=== PATIENT | female | born 1990 | race Caucasian/White ===

== ENCOUNTER 2018-06-28 22:23 | Emergency (ER) | payer BC, OTHER ==
--- NOTE | 2018-06-28 23:59 | ED ---
General Adult HPI - General Chief complaint: Extremity Injury, Upper Stated complaint: Arm pain Time Seen by Provider: 06/28/18 22:37 Source: patient, RN notes reviewed, old records reviewed Mode of arrival: ambulatory Limitations: no limitations - History of Present Illness Initial comments: 27-year-old male patient with no pertinent past history presents to the approximate 1 month of right arm pain. Patient reports that she has pain with twisting and gripping movements of her right hand. Patient reports that she has a pain that shoots from her thumb upper ulnar to her elbow. Patient was that she has taken Tylenol and Motrin for this pain, for which she has had mild relief. Patient reports that she has pain with gripping of right hand, however does not have any weakness. Patient denies any injury or trauma. Patient denies any other complaints. Patient denies any chest pain, shortness of breath, headache, changes in vision, focal deficit, weakness in upper or lower extremity. Systemic: Pt denies fatigue, fever/chills, rash. Pt denies weakness, night sweats, weight loss. Neuro: Pt denies headache, visual disturbances, syncope or pre-syncope. HEENT: Pt denies ocular discharge or irritation, otalgia, rhinorrhea, pharyngitis or notable lymphadenopathy. Cardiopulmonary: Pt denies chest pain, SOB, heart palpitations, dyspnea on exer tion. Abdominal/GI: Pt denies abdominal pain, n/v/d. : Pt denies dysuria, burning w/ urination, frequency/urgency. Denies new onset urinary or bowel incontinence. MSK: Pt denies loss of strength or function in extremities. Neuro: Pt denies new onset weakness, paresthesias. - Related Data Home Medications Medication Instructions Recorded Confirmed traZODone HCL 50 mg PO HS 06/28/18 06/28/18 Allergies Allergy/AdvReac Type Severity Reaction Status Date / Time No Known Allergies Allergy Verified 06/28/18 22:33 Review of Systems ROS Statement: Those systems with pertinent positive or pertinent negative responses have been documented in the HPI. ROS Other: All systems not noted in ROS Statement are negative. Past Medical History Past Medical History: No Reported History History of Any Multi-Drug Resistant Organisms: None Reported Past Surgical History: Appendectomy, Orthopedic Surgery Past Psychological History: Panic Disorder Smoking Status: Light tobacco smoker Past Alcohol Use History: Occasional Past Drug Use History: None Reported General Exam - General Exam Comments Initial Comments: Constitutional: NAD, AOX3, Pt has pleasant affect. HEENT: NC/AT, trachea midline, neck supple, no lymphadenopathy. Posterior pharynx non erythematous, without exudates. External ears appear normal, without discharge. Mucous membranes moist. Eyes PERRLA, EOM intact. There is no scleral icterus. No pallor noted. Cardiopulmonary: RRR, no murmurs, rubs or gallops, no JVD noted. Lungs CTAB in anterior and posterior cerna. No peripheral edema. Abdominal exam: Abdomen soft and non-distended. Abdomen non-tender to palpation in all 4 quadrants. Bowel sounds active in LLQ. No hepatosplenomegaly. No ecchymosis Neuro: CN II-XII grossly intact. No nuchal rigidity. MSK: Pain reproducible with gripping of right hand. No significant tenderness to right upper extremity. Radial pulse +2, capillary refill less than 2 seconds. Normal manager recruitment strength bilaterally, sensation intact bilaterally. No posterior calf tenderness bilaterally, homans sign negative bilaterally. Posterior tibialis and radial pulse +2 bilaterally. Sensation intact in upper and lower extremities. Full active ROM in upper and lower extremities, 5/5 stregnth. Limitations: no limitations Course Vital Signs 06/28/18 22:29 Temperature 98.2 F Pulse Rate 100 Respiratory 17 Rate Blood Pressure 124/87 O2 Sat by Pulse 99 Oximetry Medical Decision Making - Medical Decision Making 27-year-old male patient with no pertinent past history presents to the approximate 1 month of right arm pain. Patient reports that she has pain with twisting and gripping movements of her right hand. Patient reports that she has a pain that shoots from her thumb upper ulnar to her elbow. Patient was that she has taken Tylenol and Motrin for this pain, for which she has had mild relief. Patient reports that she has pain with gripping of right hand, however does not have any weakness. Patient denies any injury or trauma. Patient denies any other complaints. Patient denies any chest pain, shortness of breath, headache, changes in vision, focal deficit, weakness in upper or lower extremity. Pt VSS, afebrile. Physical exam displayed: Normal manager recruitment strength bilaterally, sensation intact bilaterally. No posterior calf tenderness bilaterally, homans sign negative bilaterally. Posterior tibialis and radial pulse +2 bilaterally. Sensation intact in upper and lower extremities. Full active ROM in upper and lower extremities, 5/5 stregnth. Plain films of and forearm and elbow did not demonstrate acute pathology. Explained patient of this is likely a possible carpal tunnel or cubital tunnel syndrome. Patient verbalized understanding. Patient given orthopedic referral. Patient follow up with orthopedic surgeon 1-2 days. Pt will use tylenol or motrin as needed for pain, pt states she is not . Patient has used neutral splint. Patient was understanding. Patient return to ER if condition worsens in any way. Case discussed with Dr. Le. Disposition Clinical Impression: Arthralgia Disposition: HOME SELF-CARE Condition: Stable Instructions (If sedation given, give patient instructions): Carpal Tunnel Surgery (DC), Cubital Tunnel Syndrome (ED), Arthralgia (ED) Additional Instructions: Patient to adhere to previously discussed treatment plan and will take medication(s) as directed. Patient to follow up with PCP in 1-2 days. Patient to return to ED if symptoms do not improve. Please use Tylenol or Motrin as needed for pain. Please follow-up with orthopedic consult 1-2 days. Please wear neutral splints on wrist. Is patient prescribed a controlled substance at d/c from ED?: No Referrals: None,Stated [Primary Care Provider] - 1-2 days Elizabeth Molina, PAC [[facility]] - 1-2 days
--- NOTE | 2018-06-29 00:12 | XR ---
EXAM: XR Right Elbow Complete, 3 or More Views CLINICAL HISTORY: ITS.REASON XR Reason: Pain TECHNIQUE: Frontal, lateral and oblique views of the right elbow. COMPARISON: No relevant prior studies available. FINDINGS: Bones/joints: No acute fracture. No dislocation. Soft tissues: Unremarkable. IMPRESSION: No acute findings.
--- NOTE | 2018-06-29 00:12 | XR ---
EXAM: XR Right Forearm, 2 Views CLINICAL HISTORY: ITS.REASON XR Reason: Pain TECHNIQUE: Frontal and lateral views of the right forearm. COMPARISON: No relevant prior studies available. FINDINGS: Bones/joints: No acute fracture. No dislocation. Soft tissues: Unremarkable. IMPRESSION: No acute findings.
--- NOTE | 2018-06-29 00:15 | XR ---
EXAM: XR Right Hand Complete, 3 or More Views CLINICAL HISTORY: ITS.REASON XR Reason: Pain TECHNIQUE: Frontal, lateral and oblique views of the right hand. COMPARISON: No relevant prior studies available. FINDINGS: Bones/joints: No acute fracture. No dislocation. Soft tissues: Unremarkable. No radiopaque foreign body. IMPRESSION: No acute findings.
[2018-06-29 00:44] VITALS: BP 115/79; PULSE 72; RESP 16; TEMP 98
== END 2018-06-29 00:44 | disposition home or self-care (01) ==
LOC: EC 22:23
DX: M25.541 Pain in joints of right hand (principal); F41.0 Panic disorder [episodic paroxysmal anxiety]; F17.200 Nicotine dependence, unspecified, uncomplicated; Z79.899 Other long term (current) drug therapy
CPT/HCPCS: 99284

== ENCOUNTER → 2020-05-05 | Outpatient (CLI) | payer OTHER ==
--- NOTE | 2020-05-06 02:33 | MR ---
EXAMINATION TYPE: MR angio pelvis wo/w con DATE OF EXAM: 05/05/2020 COMPARISON: None HISTORY: Pelvic congstion syndrome, venous insufficiency CONTRAST: Standard multiplanar, multisequence MRI departmental protocol utilizing 5 mL intravenous Gadavist jeremie olinium contrast. There is normal appearance of the lower abdominal aorta and the common iliac arteries. There is arter ial flow in the internal and external iliac arteries and in both femoral arteries. I see no evidence of hemodynamic stenosis. There is arterial flow in both profunda femoris arteries. There is no mass e ffect. There is no sign of arterial aneurysm or dissection. Bladder distends smoothly. Uterus is anteverted. There is no evidence of free fluid in the pelvis. Th ere is no sign of a pelvic mass. Bony structures appear intact. IMPRESSION: No angiographic arterial abnormality in the pelvis. This exam does not evaluate the venous structures and the possibility of varices.
== END | disposition home or self-care (01) ==
LOC: RADMRIMAIN 16:38
PROVIDERS: ATTEND Surgery Vascular Surgery
DX: I87.2 Venous insufficiency (chronic) (peripheral) (principal); N94.89 Other specified conditions associated with female genital organs and menstrual cycle
CPT/HCPCS: C8920; A9585; 72198

== ENCOUNTER 2021-06-01 18:53 | Emergency (ER) | payer OTHER ==
[2021-06-01 19:02] VITALS: TEMP 98.3
[2021-06-01] MEDS ORDERED: SODIUM CHLORIDE 0.9% 500 ML 500 ML IV STA (19:27)
[2021-06-01 19:50] LABS: Basophils % (A) 0 %; Eosinophils # (A) 0.1 k/uL (0-0.7); Eosinophils % (A) 1 %; HCT 39.7 % (34.0-46.0); HGB 13.2 gm/dL (11.4-16.0); Lymphocytes # (A) 1.8 k/uL (1.0-4.8); Lymphocytes % (A) 25 %; MCH 29.3 pg (25.0-35.0); MCHC 33.2 g/dL (31.0-37.0); MCV 88.3 fL (80.0-100.0); Mean Platelet Volume 7.5; Monocytes # (A) 0.3 k/uL (0-1.0); Monocytes % (A) 4 %; Neutrophils % (A) 69 %; Platelet Count 268 k/uL (150-450); RBC 4.49 m/uL (3.80-5.40); WBC 7.3 k/uL (3.8-10.6)
[2021-06-01 20:11] LABS: INR 0.9 (<1.2); Prothrombin Time 10.3 sec (9.0-12.0)
[2021-06-01 20:12] LABS: ALT 15 U/L (4-34); AST 17 U/L (14-36); African American GFR (CKD) >90 (>60 ml/min/1.73 sqM); Albumin 4.1 g/dL (3.5-5.0); Alkaline Phosphatase 45 U/L (38-126); Anion Gap 8 mmol/L; Blood Urea Nitrogen 9 mg/dL (7-17); Calcium 8.9 mg/dL (8.4-10.2); Carbon Dioxide 27 mmol/L (22-30); Chloride 100 mmol/L (98-107); Glucose 96 mg/dL (74-99); Magnesium 1.8 mg/dL (1.6-2.3); Non-African American GFR(CKD) >90 (>60 ml/min/1.73 sqM); Potassium 3.7 mmol/L (3.5-5.1); Sodium 135 mmol/L (137-145); Total Bilirubin 0.4 mg/dL (0.2-1.3); Total Protein 7.2 g/dL (6.3-8.2)
[2021-06-01 20:13] LABS: Partial Thromboplastin Time 21.7 sec (22.0-30.0)
--- NOTE | 2021-06-01 20:26 | ED ---
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 Patient had stenting performed at [facility]. She is currently on Lovenox. She presented for evaluation of an episode of blurry vision and lightheadedness. She states she did have some vague left-sided chest pain at the time. There is no diaphoresis. She states her vision has improved. She denies headache. She denies difficulty breathing. She had venous access sites in the left groin and neck. Patient denies any lower extremity pain. She is having significant back pain which she had in the postoperative period. (Nate Nino) - Related Data Home Medications Medication Instructions Recorded Confirmed traZODone HCL 50 mg PO HS PRN 06/28/18 06/01/21 ALPRAZolam [Xanax] 0.125 mg PO DAILY PRN 06/01/21 06/01/21 Aspirin EC [Ecotrin Low Dose] 81 mg PO DAILY 06/01/21 06/01/21 Enoxaparin [Lovenox] 40 mg SQ BID 06/01/21 06/01/21 Ethinyl Estradiol/Drospirenone 1 tab PO DAILY 06/01/21 06/01/21 [Vi 28 Tablet] Ondansetron [Zofran] 4 mg PO Q6H PRN 06/01/21 06/01/21 SUMAtriptan succinate [Imitrex] 50 mg PO BID PRN 06/01/21 06/01/21 oxyCODONE HCL [oxyCODONE HCL (IR)] 10 mg PO Q4H PRN 06/01/21 06/01/21 Allergies Allergy/AdvReac Type Severity Reaction Status Date / Time No Known Allergies Allergy Verified 06/01/21 18:58 Review of Systems ROS Other: All systems not noted in ROS Statement are negative. <Nate Nino Haseeb - Last Filed: 06/01/21 21:20> ROS Other: All systems not noted in ROS Statement are negative. <Jadiel Aaron - Last Filed: 06/02/21 02:02> ROS Statement: Those systems with pertinent positive or pertinent negative responses have been documented in the HPI. Past Medical History Past Medical History: No Reported History History of Any Multi-Drug Resistant Organisms: None Reported Past Surgical History: Appendectomy, Orthopedic Surgery Additional Past Surgical History / Comment(s): iliac stents Past Psychological History: Panic Disorder Smoking Status: Vaper Past Alcohol Use History: Occasional Past Drug Use History: None Reported <Nate Nino Haseeb - Last Filed: 06/01/21 21:20> General Exam Limitations: no limitations General appearance: alert, in no apparent distress Head exam: Present: atraumatic, normocephalic Eye exam: Present: normal appearance, PERRL ENT exam: Present: normal exam Neck exam: Present: normal inspection. Absent: tenderness, meningismus Respiratory exam: Present: normal lung sounds bilaterally. Absent: respiratory distress, wheezes Cardiovascular Exam: Present: regular rate, normal rhythm GI/Abdominal exam: Present: soft. Absent: distended, tenderness, guarding Extremities exam: Present: normal inspection, normal capillary refill, other (2+ bilateral pedal pulses). Absent: pedal edema, calf tenderness Neurological exam: Present: alert, oriented X3, CN II-XII intact. Absent: motor sensory deficit Psychiatric exam: Present: normal affect, normal mood Skin exam: Present: warm, dry, intact. Absent: cyanosis, diaphoretic <Nate Nino Haseeb - Last Filed: 06/01/21 21:20> Course <Nate Nino Haseeb - Last Filed: 06/01/21 21:20> <Jadiel Aaron - Last Filed: 06/02/21 02:02> Vital Signs 06/01/21 06/01/21 06/01/21 18:58 22:09 23:26 Temperature 98.3 F Pulse Rate 91 75 69 Respiratory 20 16 16 Rate Blood Pressure 96/67 103/64 101/71 O2 Sat by Pulse 100 98 98 Oximetry - Reevaluation(s) Reevaluation #1: 06/01/21 21:00 care signed out at shift change to Dr. Aaron. (Nate Nino) Reevaluation #2: 06/02/21 00:01 Patient has adequate current pain control (Jadiel Aaron) Reevaluation #3: 06/02/21 00:01 Patient informed results and questions answered 06/02/21 00:01 Chest pain is improved, leg remains without swelling, patient can be discharged home (Jadiel Aaron) - Consultations Consultation #1: Did speak with on-call, provider who provided surgery for this patient, they provide no other advice aside from follow-up with Mcdaniel on Friday (Jadiel Aaron) EKG Findings - EKG Comments: EKG Findings:: EKG: Sinus rhythm with a rate of 71, MN interval 147, QRS duration 84, QTC 400, no ST segment elevation. <Nate Nino - Last Filed: 06/01/21 21:20> Medical Decision Making - Lab Data Result diagrams: 06/01/21 19:37 06/01/21 19:41 <Nate Nino - Last Filed: 06/01/21 21:20> - Lab Data Result diagrams: 06/01/21 19:37 06/01/21 19:41 - Radiology Data Radiology results: report reviewed (CT thoracic aorta is negative for acute disease), image reviewed <Jadiel Aaron - Last Filed: 06/02/21 02:02> - Medical Decision Making 30 female concern for severe increase in pain after surgery. Patient presented today for evaluation which also could chest pain. Patient does have angiogram with recent stent placement in her iliac veins. No acute interval findings labwork or other testing. Patient can be discharged home (Jadiel Aaron) - Lab Data Lab Results 06/01/21 06/01/21 06/01/21 Range/Units 19:37 19:41 19:41 WBC 7.3 (3.8-10.6) k/uL RBC 4.49 (3.80-5.40) m/uL Hgb 13.2 (11.4-16.0) gm/dL Hct 39.7 (34.0-46.0) % MCV 88.3 (80.0-100.0) fL MCH 29.3 (25.0-35.0) pg MCHC 33.2 (31.0-37.0) g/dL RDW 12.0 (11.5-15.5) % Plt Count 268 (150-450) k/uL MPV 7.5 Neutrophils % 69 % Lymphocytes % 25 % Monocytes % 4 % Eosinophils % 1 % Basophils % 0 % Neutrophils # 5.0 (1.3-7.7) k/uL Lymphocytes # 1.8 (1.0-4.8) k/uL Monocytes # 0.3 (0-1.0) k/uL Eosinophils # 0.1 (0-0.7) k/uL Basophils # 0.0 (0-0.2) k/uL PT 10.3 (9.0-12.0) sec INR 0.9 (<1.2) APTT 21.7 L (22.0-30.0) sec Sodium 135 L (137-145) mmol/L Potassium 3.7 (3.5-5.1) mmol/L Chloride 100 (98-107) mmol/L Carbon Dioxide 27 (22-30) mmol/L Anion Gap 8 mmol/L BUN 9 (7-17) mg/dL Creatinine 0.64 (0.52-1.04) mg/dL Est GFR (CKD-EPI)AfAm >90 (>60 ml/min/1.73 sqM) Est GFR (CKD-EPI)NonAf >90 (>60 ml/min/1.73 sqM) Glucose 96 (74-99) mg/dL Calcium 8.9 (8.4-10.2) mg/dL Magnesium 1.8 (1.6-2.3) mg/dL Total Bilirubin 0.4 (0.2-1.3) mg/dL AST 17 (14-36) U/L ALT 15 (4-34) U/L Alkaline Phosphatase 45 (38-126) U/L Troponin I (0.000-0.034) ng/mL Total Protein 7.2 (6.3-8.2) g/dL Albumin 4.1 (3.5-5.0) g/dL 06/01/21 Range/Units 19:41 WBC (3.8-10.6) k/uL RBC (3.80-5.40) m/uL Hgb (11.4-16.0) gm/dL Hct (34.0-46.0) % MCV (80.0-100.0) fL MCH (25.0-35.0) pg MCHC (31.0-37.0) g/dL RDW (11.5-15.5) % Plt Count (150-450) k/uL MPV Neutrophils % % Lymphocytes % % Monocytes % % Eosinophils % % Basophils % % Neutrophils # (1.3-7.7) k/uL Lymphocytes # (1.0-4.8) k/uL Monocytes # (0-1.0) k/uL Eosinophils # (0-0.7) k/uL Basophils # (0-0.2) k/uL PT (9.0-12.0) sec INR (<1.2) APTT (22.0-30.0) sec Sodium (137-145) mmol/L Potassium (3.5-5.1) mmol/L Chloride (98-107) mmol/L Carbon Dioxide (22-30) mmol/L Anion Gap mmol/L BUN (7-17) mg/dL Creatinine (0.52-1.04) mg/dL Est GFR (CKD-EPI)AfAm (>60 ml/min/1.73 sqM) Est GFR (CKD-EPI)NonAf (>60 ml/min/1.73 sqM) Glucose (74-99) mg/dL Calcium (8.4-10.2) mg/dL Magnesium (1.6-2.3) mg/dL Total Bilirubin (0.2-1.3) mg/dL AST (14-36) U/L ALT (4-34) U/L Alkaline Phosphatase (38-126) U/L Troponin I <0.012 (0.000-0.034) ng/mL Total Protein (6.3-8.2) g/dL Albumin (3.5-5.0) g/dL Disposition <Nate Nino - Last Filed: 06/01/21 21:20> Is patient prescribed a controlled substance at d/c from ED?: No <Jadiel Aaron - Last Filed: 06/02/21 02:02> Clinical Impression: Postoperative pain Disposition: HOME SELF-CARE Condition: Good Instructions (If sedation given, give patient instructions): Pain Management After Surgery (DC) Referrals: Deon Voss MD [Primary Care Provider] - 1-2 days
[2021-06-01] MEDS ORDERED: SODIUM CHLORIDE 0.9% 500 ML 500 ML IV ONE (21:00)
--- NOTE | 2021-06-01 21:55 | CT ---
EXAMINATION TYPE: CT angio thor/abd pel aorta CT DLP: 868 mGycm, Automated exposure control for dose reduction was used. DATE OF EXAM: 06/01/2021 9:07 PM COMPARISON: MR angiography 05/05/2020. CLINICAL INDICATION:Female, 30 years old with history of Chest pain back pain recent iliac veins sten ting, TECHNIQUE: Dissection protocol: Multiple axial CT images of the chest, abdomen, and pelvis were obtai leticia prior and to the administration of IV contrast. 3-D reformats and maximum intensity projection fo rmat were performed on a separate workstation. Then the abdomen was scanned after administration of 8 0 cc of Isovue 370 IV contrast. FINDINGS: ARTERIAL VASCULATURE: The thoracic aorta is normal in course and caliber. There is no evidence of aor tic dissection, aneurysm or acute aortic injury. Great arch vessels patent and normal in course and c aliber. PULMONARY ARTERIAL VASCULATURE: Normal caliber. VENOUS SYSTEM: Bilateral common iliac vein stents are suboptimally evaluated given lack of contrast w ithin the venous system. Lungs/pleura: The lung parenchyma appears unremarkable. Heart: Within normal limits. Mediastinum: No gross evidence of adenopathy. Lower Neck: No significant findings. Abdomen: Liver: Unremarkable. Gallbladder and Bile ducts: Unremarkable. Pancreas: Unremarkable. Spleen: Unremarkable. Adrenal glands: Unremarkable. Kidneys and Ureters: Unremarkable. No hydronephrosis. Stomach and Bowel: Unremarkable. No evidence of bowel obstruction. Peritoneum: No evidence of pneumoperitoneum, free fluid, or adenopathy. Bladder: Unremarkable. Reproductive: Unremarkable. Abdominal wall/soft tissues: Unremarkable. Musculoskeletal: The osseous structures appear intact. IMPRESSION: 1. No evidence for thoracic aortic dissection. 2. Bilateral common iliac vein stents are suboptimally evaluated given lack of contrast within the v enous system.
[2021-06-01 22:09] VITALS: RESP 16
[2021-06-01] MEDS ORDERED: MORPHINE SULFATE 4 MG/ML SYRINGE IVP STA (22:49)
[2021-06-01 23:28] VITALS: BP 101/71; PULSE 69
== END 2021-06-01 23:28 | disposition home or self-care (01) ==
LOC: EC 18:53
DX: G89.18 Other acute postprocedural pain (principal); F17.209 Nicotine dependence, unspecified, with unspecified nicotine-induced disorders
CPT/HCPCS: 36415; 93005; 80053; 83735; 84484; 85025; 85610; 85730; 71275; 74174; 99285; 96374; 96361; J2270; Q9967

== ENCOUNTER 2021-11-23 21:58 | Emergency (ER) | payer OTHER ==
[2021-11-23 22:29] VITALS: TEMP 98.2
[2021-11-24 03:45] LABS: Basophils % (A) 0 %; Eosinophils # (A) 0.2 k/uL (0-0.7); Eosinophils % (A) 3 %; HCT 39.7 % (34.0-46.0); HGB 12.8 gm/dL (11.4-16.0); Lymphocytes # (A) 3.1 k/uL (1.0-4.8); Lymphocytes % (A) 54 %; MCH 28.8 pg (25.0-35.0); MCHC 32.3 g/dL (31.0-37.0); Mean Platelet Volume 7.4; Monocytes # (A) 0.3 k/uL (0-1.0); Monocytes % (A) 5 %; Neutrophils % (A) 34 %; Platelet Count 309 k/uL (150-450); RBC 4.46 m/uL (3.80-5.40); RDW 11.9 % (11.5-15.5); WBC 5.7 k/uL (3.8-10.6)
[2021-11-24 04:11] LABS: ALT 13 U/L (4-34); AST 18 U/L (14-36); African American GFR (CKD) >90 (>60 ml/min/1.73 sqM); Albumin 4.5 g/dL (3.5-5.0); Alkaline Phosphatase 58 U/L (38-126); Anion Gap 12 mmol/L; Blood Urea Nitrogen 10 mg/dL (7-17); Calcium 9.5 mg/dL (8.4-10.2); Carbon Dioxide 24 mmol/L (22-30); Chloride 101 mmol/L (98-107); Glucose 96 mg/dL (74-99); Non-African American GFR(CKD) >90 (>60 ml/min/1.73 sqM); Potassium 4.1 mmol/L (3.5-5.1); Sodium 137 mmol/L (137-145); Total Bilirubin <0.1 mg/dL (0.2-1.3); Total Protein 7.2 g/dL (6.3-8.2)
[2021-11-24] MEDS ORDERED: VANCOMYCIN IV PER PHARMACY 1 EACH MISC MISCELLANE PRN (05:53)
[2021-11-24] MEDS ORDERED: SODIUM CHLORIDE 0.9% 500 ML 500 ML IV STA (05:59)
[2021-11-24] MEDS ORDERED: MORPHINE SULFATE 4 MG/ML SYRINGE IVP STA (05:59)
[2021-11-24] MEDS ORDERED: VANCOMYCIN 1,000 MG in SODIUM CHLORIDE 0.9% 250 ML IVPB ONE (06:00)
[2021-11-24] MEDS ORDERED: TRANEXAMIC ACID 2,000 MG in SODIUM CHLORIDE 0.9% 100 ML IRRIGATION ONE (06:10)
[2021-11-24] MEDS ORDERED: TRANEXAMIC ACID 1,000 MG/10 ML VIAL MISCELLANE STA (06:13)
[2021-11-24 06:23] LABS: INR 1.1 (<1.2); Partial Thromboplastin Time 26.2 sec (22.0-30.0); Prothrombin Time 11.5 sec (9.0-12.0)
--- NOTE | 2021-11-24 07:15 | CT ---
EXAMINATION TYPE: CT abdomen pelvis w con DATE OF EXAM: 11/24/2021 COMPARISON: None HISTORY: Post op complications CT DLP: 511.3 mGycm Automated exposure control for dose reduction was used. CONTRAST: Performed with IV Contrast, patient injected with 100 mL of Isovue 300. Images obtained from the diaphragms to the floor the pelvis with IV contrast. Lumbar lordosis are clear. No pleural effusion. Heart size is normal. No pericardial effusion. Liver and spleen appear intact. Stomach is intact. There is no pancreatic mass. The bulbous or not dilated. There is no adrenal mass. Gallbladder has normal size. There is bilateral iliac vein stents. Kidneys show satisfactory contrast opacification. There is no hydronephrosis. Ureters are not dilated. No ret roperitoneal adenopathy. Delayed images appear to show patency of the iliac stents bilaterally. The b ladder distends smoothly. Delayed images show normal renal excretion. No retroperitoneal adenopathy. There is small amount of low-density free fluid in the pelvis. There is apparent hysterectomy. No pel priya mass. There is no free air. No bowel obstruction. No mesenteric edema. The lumbar vertebra ar Intact. No co mpression fracture. Bony pelvis is intact. IMPRESSION: There is small amount of low density free fluid in the pelvis. Hysterectomy noted. There is patency o f the iliac vein stents. I do not see evidence for any acute intraperitoneal hemorrhage.
[2021-11-24 07:23] LABS: Appearance,Urine Clear (Clear); Bacteria,Urine Occasional /hpf; Bilirubin,Urine Negative (Negative); Blood,Urine Large (Negative); Color,Urine Colorless; Glucose,Urine (UA) Negative (Negative); Ketones,Urine Negative (Negative); Leukocyte Esterase,Urine Trace (Negative); Nitrite,Urine Negative (Negative); PH, Urine 5.5 (5.0-8.0); Protein,Urine Negative (Negative); RBC,Urine 1 /hpf (0-5); Specific Gravity,Urine 1.002 (1.001-1.035); Squamous Epithelial Cell,Urine 2 /hpf (0-4); Urobilinogen,Urine <2.0 mg/dL (<2.0); WBC,Urine 2 /hpf (0-5)
--- NOTE | 2021-11-24 07:56 | ED ---
General Adult HPI - General Chief complaint: Vaginal Bleeding Stated complaint: Post-op complications Time Seen by Provider: 11/24/21 05:10 Source: patient, RN notes reviewed, old records reviewed Mode of arrival: ambulatory Limitations: no limitations - History of Present Illness Initial comments: She is a 31-year-old female whose on Eliquis for peripheral vascular disease and stenting, who recently had a hysterectomy presents emergency Department co mplaining of postsurgical bleeding. Patient states her surgery was approximately 2 weeks ago. 2 days ago, she be on having some vaginal bleeding. She states it does not seem to be improving. States she is saturating multiple pads per day. Endorses seeing some blood clots as well. She did call her surgeon, who states that should resolve in a few days. She feels like it is getting worse which is why she presents for further evaluation. Denies lightheadedness, blurry vision, chest pain, shortness of breath. Endorses mild abdominal discomfort. located in the suprapubic region that she has been dealing with since surgery. Denies nausea, vomiting, diarrhea. Denies any urinary complaints. Presents over concern for possible worsening bleeding. - Related Data Home Medications Medication Instructions Recorded Confirmed traZODone HCL 50 mg PO HS PRN 06/28/18 06/01/21 ALPRAZolam [Xanax] 0.125 mg PO DAILY PRN 06/01/21 06/01/21 Aspirin EC [Ecotrin Low Dose] 81 mg PO DAILY 06/01/21 06/01/21 Enoxaparin [Lovenox] 40 mg SQ BID 06/01/21 06/01/21 Ethinyl Estradiol/Drospirenone 1 tab PO DAILY 06/01/21 06/01/21 [Vi 28 Tablet] Ondansetron [Zofran] 4 mg PO Q6H PRN 06/01/21 06/01/21 SUMAtriptan succinate [Imitrex] 50 mg PO BID PRN 06/01/21 06/01/21 oxyCODONE HCL [oxyCODONE HCL (IR)] 10 mg PO Q4H PRN 06/01/21 06/01/21 Allergies Allergy/AdvReac Type Severity Reaction Status Date / Time No Known Allergies Allergy Verified 11/23/21 22:29 Review of Systems ROS Statement: Those systems with pertinent positive or pertinent negative responses have been documented in the HPI. Review of Systems: CONST: Denies fever EYES: Denies blurry vision ENT: Denies nasal congestion C/V: Denies Chest pain RESP: Denies shortness of breath GI: Denies abdominal pain : Endorses vaginal bleeding. SKIN: Denies rash. MSK: Denies joint pain. NEURO: Denies headache ROS Other: All systems not noted in ROS Statement are negative. Past Medical History Past Medical History: No Reported History History of Any Multi-Drug Resistant Organisms: None Reported Past Surgical History: Appendectomy, Hysterectomy, Orthopedic Surgery Additional Past Surgical History / Comment(s): iliac stents Past Psychological History: Panic Disorder Smoking Status: Vaper Past Alcohol Use History: Occasional Past Drug Use History: None Reported General Exam - General Exam Comments Initial Comments: General: Appears in no acute distress. HEAD: Normal with no signs of head trauma. EYES: PERRLA, EOMI, conjunctiva normal, no discharge. ENT: Hearing grossly intact, normal oropharynx. RESPIRATORY: Clear breath sounds bilaterally. No wheezes, rales, or rhonchi. C/V: Regular rate and rhythm. S1 and S2 auscultated, no edema, peripheral pulses 2+ and intact throughout ABD: Abd is soft, nontender, nondistended EXT: Normal range of motion, no obvious deformity SKIN: No rashes or lesions observed on exposed skin. NEURO: Alert and oriented x 4. Cranial nerves II-XII intact. No focal sensory or strength deficits. Limitations: no limitations Course Vital Signs 11/23/21 11/24/21 22:24 02:29 Temperature 98.2 F Pulse Rate 91 75 Respiratory 16 18 Rate Blood Pressure 127/79 124/67 O2 Sat by Pulse 100 98 Oximetry Medical Decision Making - Medical Decision Making Based on the patient's presentation and physical exam, I'm concerned for possible postop surgical bleed. Patient has mild suprapubic tenderness as well. Cannot rule out intra-abdominal process. Patient is worried that something happened with surgery. Has not been able to follow up with her surgeon. I evaluated the patient after labs were obtained while she waited in triage. Hemoglobin is within normal limits. Coags are within normal limits. UA shows large amount of blood. Otherwise labs are unremarkable. No signs within normal limits. I did offer CT abdomen and pelvis as well as a pelvic exam with TXA soaked knowles swabs for tampenade if needed. She was in agreement this CT abdomen and pelvis shows no signs of acute intra-abdominal hemorrhage. Shows postsurgical changes. Pelvic exam was performed by an senior executive assistant mid-level provider. Revealed a small amount of blood. Very small active bleeding site which improved after TXA swab. On reevaluation, I reassured the patient that at this time, the bleeding she is having appears to be not severe. Recommended she continue to monitor her bleeding. Recommended she follow up with her surgeon early next week. She was in agreement this plan. Strict Return precautions were discussed. I instructed the patient to follow up with their PCP in the next 1-3 days. I explained that the patient should return to the emergency department if they exp erience any worsening symptoms. Strict return precautions were discussed with the patient. The patient expressed understanding of these instructions. I answered all questions that the patient had. The patient was discharged home in good condition with their prescriptions and follow up information. - Lab Data Result diagrams: 11/24/21 03:16 11/24/21 03:16 Lab Results 11/24/21 11/24/21 11/24/21 Range/Units 03:13 03:15 03:16 WBC 5.7 (3.8-10.6) k/uL RBC 4.46 (3.80-5.40) m/uL Hgb 12.8 (11.4-16.0) gm/dL Hct 39.7 (34.0-46.0) % MCV 89.0 (80.0-100.0) fL MCH 28.8 (25.0-35.0) pg MCHC 32.3 (31.0-37.0) g/dL RDW 11.9 (11.5-15.5) % Plt Count 309 (150-450) k/uL MPV 7.4 Neutrophils % 34 % Lymphocytes % 54 % Monocytes % 5 % Eosinophils % 3 % Basophils % 0 % Neutrophils # 2.0 (1.3-7.7) k/uL Lymphocytes # 3.1 (1.0-4.8) k/uL Monocytes # 0.3 (0-1.0) k/uL Eosinophils # 0.2 (0-0.7) k/uL Basophils # 0.0 (0-0.2) k/uL PT (9.0-12.0) sec INR (<1.2) APTT (22.0-30.0) sec Sodium (137-145) mmol/L Potassium (3.5-5.1) mmol/L Chloride (98-107) mmol/L Carbon Dioxide (22-30) mmol/L Anion Gap mmol/L BUN (7-17) mg/dL Creatinine (0.52-1.04) mg/dL Est GFR (CKD-EPI)AfAm (>60 ml/min/1.73 sqM) Est GFR (CKD-EPI)NonAf (>60 ml/min/1.73 sqM) Glucose (74-99) mg/dL Calcium (8.4-10.2) mg/dL Total Bilirubin (0.2-1.3) mg/dL AST (14-36) U/L ALT (4-34) U/L Alkaline Phosphatase (38-126) U/L Total Protein (6.3-8.2) g/dL Albumin (3.5-5.0) g/dL Urine Color Urine Appearance (Clear) Urine pH (5.0-8.0) Ur Specific [place] (1.001-1.035) Urine Protein (Negative) Urine Glucose (UA) (Negative) Urine Ketones (Negative) Urine Blood (Negative) Urine Nitrite (Negative) Urine Bilirubin (Negative) Urine Urobilinogen (<2.0) mg/dL Ur Leukocyte Esterase (Negative) Urine RBC (0-5) /hpf Urine WBC (0-5) /hpf Ur Squamous Epith Cells (0-4) /hpf Urine Bacteria (None) /hpf Blood Type A Positive Blood Type Confirm A Positive Blood Type Recheck No Previous Record Bld Type Recheck Status CABO Indicated Antibody Screen NEGATIVE Spec Expiration Date 11/27/2021 - 231411/24/21 11/24/21 11/24/21 Range/Units 03:16 05:32 06:47 WBC (3.8-10.6) k/uL RBC (3.80-5.40) m/uL Hgb (11.4-16.0) gm/dL Hct (34.0-46.0) % MCV (80.0-100.0) fL MCH (25.0-35.0) pg MCHC (31.0-37.0) g/dL RDW (11.5-15.5) % Plt Count (150-450) k/uL MPV Neutrophils % % Lymphocytes % % Monocytes % % Eosinophils % % Basophils % % Neutrophils # (1.3-7.7) k/uL Lymphocytes # (1.0-4.8) k/uL Monocytes # (0-1.0) k/uL Eosinophils # (0-0.7) k/uL Basophils # (0-0.2) k/uL PT 11.5 (9.0-12.0) sec INR 1.1 (<1.2) APTT 26.2 (22.0-30.0) sec Sodium 137 (137-145) mmol/L Potassium 4.1 (3.5-5.1) mmol/L Chloride 101 (98-107) mmol/L Carbon Dioxide 24 (22-30) mmol/L Anion Gap 12 mmol/L BUN 10 (7-17) mg/dL Creatinine 0.68 (0.52-1.04) mg/dL Est GFR (CKD-EPI)AfAm >90 (>60 ml/min/1.73 sqM) Est GFR (CKD-EPI)NonAf >90 (>60 ml/min/1.73 sqM) Glucose 96 (74-99) mg/dL Calcium 9.5 (8.4-10.2) mg/dL Total Bilirubin <0.1 L (0.2-1.3) mg/dL AST 18 (14-36) U/L ALT 13 (4-34) U/L Alkaline Phosphatase 58 (38-126) U/L Total Protein 7.2 (6.3-8.2) g/dL Albumin 4.5 (3.5-5.0) g/dL Urine Color Colorless Urine Appearance Clear (Clear) Urine pH 5.5 (5.0-8.0) Ur Specific [place] 1.002 (1.001-1.035) Urine Protein Negative (Negative) Urine Glucose (UA) Negative (Negative) Urine Ketones Negative (Negative) Urine Blood Large H (Negative) Urine Nitrite Negative (Negative) Urine Bilirubin Negative (Negative) Urine Urobilinogen <2.0 (<2.0) mg/dL Ur Leukocyte Esterase Trace H (Negative) Urine RBC 1 (0-5) /hpf Urine WBC 2 (0-5) /hpf Ur Squamous Epith Cells 2 (0-4) /hpf Urine Bacteria Occasional H (None) /hpf Blood Type Blood Type Confirm Blood Type Recheck Bld Type Recheck Status Antibody Screen Spec Expiration Date Disposition Clinical Impression: Vaginal bleeding, History of hysterectomy Disposition: HOME SELF-CARE Condition: Good Instructions (If sedation given, give patient instructions): Dysmenorrhea (ED) Is patient prescribed a controlled substance at d/c from ED?: No Referrals: Deon Voss MD [Primary Care Provider] - 1-2 days Time of Disposition: 07:50
[2021-11-24 08:34] VITALS: BP 120/78; PULSE 85; RESP 16
== END 2021-11-24 08:33 | disposition home or self-care (01) ==
LOC: EC 21:58
DX: N93.9 Abnormal uterine and vaginal bleeding, unspecified (principal); R10.9 Unspecified abdominal pain; Z90.710 Acquired absence of both cervix and uterus; F17.209 Nicotine dependence, unspecified, with unspecified nicotine-induced disorders
CPT/HCPCS: 36415; 86900; 86901; 80053; 85025; 85610; 85730; 86850; 81001; 74177; 99284; 96374; J2270; Q9967

== ENCOUNTER 2021-11-27 08:42 | Inpatient (IN) | payer OTHER ==
[2021-11-27] MEDS ORDERED: TRANEXAMIC ACID IN NACL,ISO-OS 1,000 MG in SALINE 1 100ML.BAG IVPB ONE (09:05)
[2021-11-27] MEDS ORDERED: SODIUM CHLORIDE 0.9% 1,000 ML IV STA (09:10)
[2021-11-27] MEDS ORDERED: Kcentra PER PHARMACY 1 EACH MISC MISCELLANE PRN (09:13)
[2021-11-27] MEDS ORDERED: EMPTY BAG 1 BAG with HUMAN PROTHROMBIN COMPLX 2,196 UNIT IV ONE (09:30)
[2021-11-27 09:38] LABS: Basophils % (A) 0 %; Eosinophils # (A) 0.2 k/uL (0-0.7); Eosinophils % (A) 1 %; HGB 10.3 gm/dL (11.4-16.0); Lymphocytes # (A) 3.2 k/uL (1.0-4.8); Lymphocytes % (A) 15 %; MCH 28.6 pg (25.0-35.0); MCHC 32.2 g/dL (31.0-37.0); MCV 88.8 fL (80.0-100.0); Mean Platelet Volume 7.4; Monocytes # (A) 0.6 k/uL (0-1.0); Monocytes % (A) 3 %; Neutrophils # (A) 16.4 k/uL (1.3-7.7); Neutrophils % (A) 80 %; Platelet Count 376 k/uL (150-450); RBC 3.61 m/uL (3.80-5.40); RDW 11.7 % (11.5-15.5); WBC 20.5 k/uL (3.8-10.6)
--- NOTE | 2021-11-27 09:39 | ED ---
General Adult HPI - General Chief complaint: Vaginal Bleeding Stated complaint: vaginal bleeding Time Seen by Provider: 11/27/21 08:45 Source: patient, EMS Mode of arrival: EMS Limitations: no limitations - History of Present Illness Initial comments: Dictation was produced using [employer] dictation software. please excuse any grammatical, word or spelling errors. Chief Complaint: 31-year-old female presents emergency Department with syncope and profuse vaginal bleeding History of Present Illness: 31-year-old female she has history of recent abdominal hysterectomy. Patient had [place] 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 Patient is on anticoagulation medications due to stent placements in the lower extremities. Today patient had severe vaginal hemorrhaging and she also had episode of syncope. Patient was seen here in emergency department 3 days ago for vaginal bleeding however she was deemed stable for discharge. She was restarted on her eliquis today after the procedure. The ROS documented in this emergency department record has been reviewed and confirmed by me. Those systems with pertinent positive or negative responses have been documented in the HPI. All other systems are other negative and/or noncontributory. PHYSICAL EXAM: General Impression: Alert and oriented x3, pale, tremulous membranes, lethargic HEENT: Normocephalic atraumatic, extra-ocular movements intact, pupils equal and reactive to light bilaterally, dry mucous membranes Cardiovascular: Tachycardic Chest: Able to complete full sentences, no retractions, no tachypnea Abdomen: abdomen soft, non-tender, non-distended, no organomegaly Musculoskeletal: Pulses present and equal in all extremities, no peripheral edema Motor: no focal deficits noted Neurological: CN II-XII grossly intact, no focal motor or sensory deficits noted Skin: Intact with no visualized rashes Psych: Anxious Pelvic exam: Shows vaginal hemorrhage coming from the surgical site at the apex of the vaginal fornix ED course: 31-year-old female presents to the emergency department for clinical presentation consistent with hemorrhagic shock secondary to surgical site bleeding. Patient is high risk due to medication of anticoagulation medications. Vital signs upon arrival shows heart rate of 124, rest of vital signs within acceptable limits. Patient did have multiple bouts of hypotension and tachycardia getting as tachycardic into the 150s and 170s. Patient's coca presentations very concerning. She does appear to be in extremis. Patient is pale and has dry mucous membranes P she is moved to trauma bay #1. Vagina was packed with gauze. PANEL MAKER on-call Dr. Travis called immediately. Patient given prothrombin complex concentrate, MTP was activated. Dr. Travis evaluated the patient at 9:45 AM. He did evaluate the patient at the bedside and will take patient to the operating room for expiration and hemorrhage control. CBC is resulted. Coag panel is unremarkable. Leukocytosis 20.5 likely stress induced. Hemoglobin 10.3 compared to 3 days ago which was 12.8. - Related Data Home Medications Medication Instructions Recorded Confirmed traZODone HCL 50 mg PO HS PRN 06/28/18 06/01/21 ALPRAZolam [Xanax] 0.125 mg PO DAILY PRN 06/01/21 06/01/21 Aspirin EC [Ecotrin Low Dose] 81 mg PO DAILY 06/01/21 06/01/21 Enoxaparin [Lovenox] 40 mg SQ BID 06/01/21 06/01/21 Ethinyl Estradiol/Drospirenone 1 tab PO DAILY 06/01/21 06/01/21 [Vi 28 Tablet] Ondansetron [Zofran] 4 mg PO Q6H PRN 06/01/21 06/01/21 SUMAtriptan succinate [Imitrex] 50 mg PO BID PRN 06/01/21 06/01/21 oxyCODONE HCL [oxyCODONE HCL (IR)] 10 mg PO Q4H PRN 06/01/21 06/01/21 Allergies Allergy/AdvReac Type Severity Reaction Status Date / Time No Known Allergies Allergy Verified 11/27/21 08:48 Review of Systems ROS Statement: Those systems with pertinent positive or pertinent negative responses have been documented in the HPI. ROS Other: All systems not noted in ROS Statement are negative. Past Medical History Past Medical History: No Reported History History of Any Multi-Drug Resistant Organisms: None Reported Past Surgical History: Appendectomy, Hysterectomy, Orthopedic Surgery Additional Past Surgical History / Comment(s): iliac stents Past Psychological History: Panic Disorder Smoking Status: Vaper Past Alcohol Use History: Occasional Past Drug Use History: None Reported General Exam Limitations: no limitations Course Vital Signs 11/27/21 11/27/21 11/27/21 08:45 09:26 09:29 Temperature 98.2 F 97.5 F L Pulse Rate 78 122 H 124 H Respiratory 20 22 24 Rate Blood Pressure 118/81 93/58 121/89 O2 Sat by Pulse 100 99 100 Oximetry 11/27/21 11/27/21 11/27/21 09:33 09:39 09:40 Temperature 98.4 F Pulse Rate 100 89 95 Respiratory 20 18 20 Rate Blood Pressure 116/64 118/85 125/105 O2 Sat by Pulse 100 Oximetry Medical Decision Making - Lab Data Result diagrams: 11/27/21 09:22 Lab Results 11/27/21 11/27/21 11/27/21 Range/Units :13 12: 09:30 WBC 20.5 H (3.8-10.6) k/uL RBC 3.61 L (3.80-5.40) m/uL Hgb 10.3 L (11.4-16.0) gm/dL Hct 32.0 L (34.0-46.0) % MCV 88.8 (80.0-100.0) fL MCH 28.6 (25.0-35.0) pg MCHC 32.2 (31.0-37.0) g/dL RDW 11.7 (11.5-15.5) % Plt Count 376 (150-450) k/uL MPV 7.4 Neutrophils % 80 % Lymphocytes % 15 % Monocytes % 3 % Eosinophils % 1 % Basophils % 0 % Neutrophils # 16.4 H (1.3-7.7) k/uL Lymphocytes # 3.2 (1.0-4.8) k/uL Monocytes # 0.6 (0-1.0) k/uL Eosinophils # 0.2 (0-0.7) k/uL Basophils # 0.0 (0-0.2) k/uL PT 11.8 (9.0-12.0) sec INR 1.1 (<1.2) APTT 23.8 (22.0-30.0) sec Transfuse Plasma 11/27/21 Critical Care Time Critical Care Time: Yes (76) Disposition Clinical Impression: Hemorrhagic shock Disposition: ADMITTED IP TO THIS [facility] Condition: Critical Referrals: Deon Voss MD [Primary Care Provider] - 1-2 days Decision Time: 09:56
[2021-11-27 09:50] LABS: INR 1.1 (<1.2); Partial Thromboplastin Time 23.8 sec (22.0-30.0); Prothrombin Time 11.8 sec (9.0-12.0)
[2021-11-27] MEDS ORDERED: NALOXONE 0.4 MG/ML 1 ML VIAL IV PRN (09:53)
[2021-11-27 09:56] LABS: African American GFR (CKD) >90 (>60 ml/min/1.73 sqM); Anion Gap 10 mmol/L; Blood Urea Nitrogen 5 mg/dL (7-17); Calcium 8.5 mg/dL (8.4-10.2); Carbon Dioxide 21 mmol/L (22-30); Chloride 104 mmol/L (98-107); Glucose 126 mg/dL (74-99); Non-African American GFR(CKD) >90 (>60 ml/min/1.73 sqM); Potassium 3.7 mmol/L (3.5-5.1); Sodium 135 mmol/L (137-145)
[2021-11-27] MEDS ORDERED: HUMAN PROTHROMBIN COMPLX 500 UNIT/16 ML VIAL IV ONE (10:00)
[2021-11-27] MEDS ORDERED: SODIUM CHLORIDE 0.9% 1,000 ML IV SCH (10:00)
--- NOTE | 2021-11-27 10:12 | P.HPOB ---
History of Present Illness H&P Date: 11/27/21 Chief Complaint: Acute vaginal bleeding status post hysterectomy The patient is a 31-year-old 2 para 2001 who underwent laparoscopic hysterectomy approximate 2 weeks ago in [facility] for pelvic congestion syndrome. She has comorbidities with stents in the iliac blood vessels secondary to clotting issues and has been on Eliquis. She reports that the procedure was ent irely uncomplicated and had been doing well until 2 weeks. She had her two-week follow-up last week. Shortly thereafter she began having some light bleeding which then turned to some heavier bleeding later this week for which she presented to the emergency room here 4 days ago. There was a moderate amount of bleeding and Monsel's was applied and the patient was released back home with a stable hemoglobin. She began having heavier bleeding this weekend and this morning woke up with the bedsheets soaked with blood. She came to the emergency room at which time the decision was made to proceed with massive transfusion protocol. She has already received 4 units of packed red blood cells. E xamination of the bedside demonstrates a significant amount of blood in the vault and I am unable to identify a specific site of bleeding. I have discussed with her that we need to proceed to the operating room for exam under anesthesia and possible repair, possible exploratory laparotomy should a site not be identified and controlled. Computed tomography scan of the abdomen done previously demonstrated no evidence of internal bleeding and she has no ongoing abdominal complaints. Obstetrical history: 2 para 2001 with 2 term vaginal deliveries without complications. Gynecologic history: Unremarkable except as noted in history of present illness. Review of Systems Review of systems is confined to history of present illness. Past Medical History Past Medical History: No Reported History History of Any Multi-Drug Resistant Organisms: None Reported Past Surgical History: Appendectomy, Hysterectomy, Orthopedic Surgery Additional Past Surgical History / Comment(s): iliac stents Past Psychological History: Panic Disorder Smoking Status: Vaper Past Alcohol Use History: Occasional Past Drug Use History: None Reported Medications and Allergies Home Medications Medication Instructions Recorded Confirmed Type traZODone HCL 50 mg PO HS PRN 06/28/18 06/01/21 History ALPRAZolam [Xanax] 0.125 mg PO DAILY PRN 06/01/21 06/01/21 History Aspirin EC [Ecotrin Low Dose] 81 mg PO DAILY 06/01/21 06/01/21 History Enoxaparin [Lovenox] 40 mg SQ BID 06/01/21 06/01/21 History Ethinyl Estradiol/Drospirenone 1 tab PO DAILY 06/01/21 06/01/21 History [Vi 28 Tablet] Ondansetron [Zofran] 4 mg PO Q6H PRN 06/01/21 06/01/21 History SUMAtriptan succinate [Imitrex] 50 mg PO BID PRN 06/01/21 06/01/21 History oxyCODONE HCL [oxyCODONE HCL (IR)] 10 mg PO Q4H PRN 06/01/21 06/01/21 History Allergies Allergy/AdvReac Type Severity Reaction Status Date / Time No Known Allergies Allergy Verified 11/27/21 08:48 Exam Vital Signs Temp Pulse Resp BP Pulse Ox 11/27/21 10:03 99 18 106/96 100 11/27/21 09:52 87 18 93/56 100 11/27/21 09:40 95 20 125/105 100 11/27/21 09:39 98.4 F 89 18 118/85 11/27/21 09:33 100 20 116/64 11/27/21 09:29 97.5 F L 124 H 24 121/89 100 11/27/21 09:26 122 H 22 93/58 99 11/27/21 08:45 98.2 F 78 20 118/81 100 Intake and Output 11/26/21 11/27/21 11/27/21 22:59 06:59 14:59 Intake Total 1185 Balance 1185 Intake: Blood Product 1185 Rc As-1 Unit 310 [id number] Rc As-1 Unit 310 [id number] Rc Pheresis As-3 Unit 286 [id number] Rc Pheresis As-3 Unit 279 [id number] Other: Weight 47.627 kg In general, this is a well-developed, well-nourished white female who appears afraid but is otherwise stable at this time. Her heart is is a regular rhythm with tachycardia. Her lungs are clear to auscultation bilaterally in all cerna. Her abdomen is nondistended, soft, nontender, without masses. Her exam is without any cyanosis, clubbing, or edema and nontender to palpation bilater ally. Speculum examination done in the emergency room demonstrates a significant amount of clot in the vagina after having removed the pack placed by the emergency room team. There is active ongoing bleeding from the cuff though the site is not identifiable secondary to patient discomfort. Results Result Diagrams: 11/27/21 09:11/27/21 09:22 Abnormal Lab Results - Last 24 Hours (Table) 11/27/21 11/27/21 Range/Units : 09:22 WBC 20.5 H (3.8-10.6) k/uL RBC 3.61 L (3.80-5.40) m/uL Hgb 10.3 L (11.4-16.0) gm/dL Hct 32.0 L (34.0-46.0) % Neutrophils # 16.4 H (1.3-7.7) k/uL Sodium 135 L (137-145) mmol/L Carbon Dioxide 21 L (22-30) mmol/L BUN 5 L (7-17) mg/dL Glucose 126 H (74-99) mg/dL Assessment and Plan (1) Hemorrhagic shock Current Visit: Yes Status: Acute Code(s): R57.8 - OTHER SHOCK SNOMED Code(s): 979150 (2) History of hysterectomy Current Visit: No Status: Acute Code(s): Z90.710 - ACQUIRED ABSENCE OF BOTH CERVIX AND UTERUS SNOMED Code(s): 625262525 (3) Vaginal bleeding Current Visit: No Status: Acute Code(s): N93.9 - ABNORMAL UTERINE AND VAGINAL BLEEDING, UNSPECIFIED SNOMED Code(s): 095789822 Plan: The patient will be taking the operating room for vaginal exploration and repair of the site of bleeding. She is also been consented for possible exploratory laparotomy should the site is not identifiable vaginally. She continued to have blood hanging at this time with her fifth unit being transfused currently. The OR is aware of the situation and preparing for surgery.
[2021-11-27] MEDS ORDERED: ETOMIDATE 2 MG/ML 10 ML VIAL ONE (10:29)
[2021-11-27] MEDS ORDERED: ONDANSETRON 4 MG/2 ML VIAL ONE (10:29)
[2021-11-27] MEDS ORDERED: fentaNYL (PF) 50 MCG/ML 2 ML AMP ONE (10:29)
[2021-11-27] MEDS ORDERED: SODIUM CHLORIDE 0.9% 1,000 ML IV ONE ×2 (10:29)
[2021-11-27] MEDS ORDERED: SUCCINYLCHOLINE CHLORIDE 200 MG/10 ML VIAL IV ONE (10:29)
[2021-11-27] MEDS ORDERED: MIDAZOLAM 2 MG/2 ML VIAL ONE (10:29)
[2021-11-27] MEDS ORDERED: DEXAMETHASONE SOD PHOSPHATE 10 MG/ML 1 ML VIAL ONE (10:29)
[2021-11-27] MEDS ORDERED: LIDOCAINE 2% INJ 20 MG/ML (2 ML VIAL) ONE (10:29)
[2021-11-27] MEDS ORDERED: BACITRACIN ZINC 500 UNIT/GM OINT 28.4 GM TUBE TOPICAL ONE (10:55)
[2021-11-27] MEDS ORDERED: SIMETHICONE 80 MG CHEWABLE PO PRN (11:09)
[2021-11-27] MEDS ORDERED: Acetaminophen-Codeine 300-30mg TAB PO PRN (11:09)
[2021-11-27] MEDS ORDERED: ONDANSETRON 4 MG/2 ML VIAL IVP PRN (11:09)
[2021-11-27] MEDS ORDERED: METOCLOPRAMIDE 5 MG/ML 2 ML VIAL IVP PRN (11:09)
--- NOTE | 2021-11-27 11:17 | P.OP ---
Date of Procedure: 11/27/21 Preoperative Diagnosis: #1. Acute vaginal bleeding status post hysterectomy #2. Hemorrhagic shock Postoperative Diagnosis: Same Procedure(s) Performed: #1. Exam under anesthesia #2. Repair of vaginal cuff Anesthesia: DANIEL Surgeon: Domingo Travis Estimated Blood Loss (ml): 5 IV fluids (ml): 500 Urine output (ml): 175 Pathology: none sent Condition: stable Disposition: PACU Operative Findings: Examination in the emergency department revealed a significant amount of clot in the vagina with active ongoing bleeding. A gauze pack was placed and she was brought to the operating room. The pack was incidentally removed during transfer the patient from bed to operating room table. Under anesthesia, the vaginal cuff had no active ongoing bleeding at that time. It did appear that either the stitches into or through the vaginal mucosa either had torn through or were not full-thickness to start with as the entire edge of the vaginal mucosa appeared open. Following repair, there was no ongoing bleeding from any site along the cuff. Description of Procedure: The patient was prepped and draped in usual fashion after general endotracheal anesthesia was administered by the anesthesiologist. A weighted speculum was placed and the bladder catheterized with a Maria catheter to be left in place following the procedure to follow ins and outs carefully given her significant hemorrhage. The vaginal cuff was grasped in the midline with an Allis clamp and brought into view. The edges appeared to either have not been closed full- thickness or perhaps had torn through slightly across the entire length. There was no ongoing bleeding at this time. A stitch of 0 Vicryl was utilized to close the cuff from angle to angle in a running locking fashion. Following re- closure, hemostasis appeared to be excellent. The vagina was then packed with one-inch iodophor gauze covered with bacitracin ointment. Estimated blood loss for the procedure itself was 5 mL or less. There were no complications. All sponge, instrument, needle counts were correct. The patient tolerated the procedure well and proceeded to the recovery room in stable condition.
[2021-11-27] MEDS ORDERED: HYDROmorphone 0.5 MG/0.5 ML SYRINGE IVP ONE (11:20)
[2021-11-27] MEDS: LACTATED RINGERS 1,000 ML IV SCH ×2 (12:02→21:55)
[2021-11-27] MEDS ORDERED: ALPRAZolam 0.5 MG TAB PO PRN (19:38)
[2021-11-27] MEDS: Acetaminophen-Codeine 300-30mg TAB PO PRN (19:52)
[2021-11-27 20:14] LABS: RBC 4.39 m/uL (3.80-5.40); WBC 11.1 k/uL (3.8-10.6)
[2021-11-27 20:15] LABS: HCT 40.5 % (34.0-46.0); HGB 13.5 gm/dL (11.4-16.0); MCH 30.8 pg (25.0-35.0); MCHC 33.3 g/dL (31.0-37.0); MCV 92.4 fL (80.0-100.0); RDW 13.2 % (11.5-15.5)
[2021-11-27 20:16] LABS: Platelet Count 194 k/uL (150-450)
[2021-11-27 20:57] VITALS: RESP 16
[2021-11-28 06:45] LABS: Basophils % (A) 0 %; Eosinophils % (A) 0 %; HCT 30.9 % (34.0-46.0); Lymphocytes # (A) 1.8 k/uL (1.0-4.8); Lymphocytes % (A) 17 %; MCH 30.2 pg (25.0-35.0); MCHC 33.7 g/dL (31.0-37.0); MCV 89.7 fL (80.0-100.0); Mean Platelet Volume 7.5; Monocytes # (A) 0.6 k/uL (0-1.0); Monocytes % (A) 6 %; Neutrophils # (A) 8.1 k/uL (1.3-7.7); Neutrophils % (A) 76 %; Platelet Count 173 k/uL (150-450); RBC 3.45 m/uL (3.80-5.40); RDW 13.3 % (11.5-15.5); WBC 10.6 k/uL (3.8-10.6)
[2021-11-28] MEDS: Acetaminophen-Codeine 300-30mg TAB PO PRN (06:52)
[2021-11-28 06:55] LABS: HGB 10.4 gm/dL (11.4-16.0)
[2021-11-28 08:34] VITALS: BP 102/67; PULSE 96; TEMP 98.3
--- NOTE | 2021-11-28 08:52 | P.DS ---
Providers Date of admission: 11/27/21 09:54 Expected date of discharge: 11/28/21 Attending physician: Domingo Travis Primary care physician: Deon Voss - Discharge Diagnosis(es) (1) Hemorrhagic shock Current Visit: Yes Status: Acute (2) History of hysterectomy Current Visit: No Status: Acute (3) Vaginal bleeding Current Visit: No Status: Acute Hospital Course: the patient is a 31-year-old 2 para 2 who is status post laparoscopic hysterectomy in [facility] approximately 3 weeks ago. Her procedure was reportedly uncomplicated in nature. 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 As result of the placement of the stents, she has been on [place]. She presented yesterday early in the morning to the emergency room with acute and active vaginal bleeding. She was placed into the massive blood transfusion protocol and received 4 units of blood by the time I had arrived at the hospital shortly after being called. She was taken the operating room where there was no active ongoing bleeding at the time of examination though there had been in the emergency room. The vaginal cuff appeared to be intact but the vaginal mucosal margins appeared to be open. As a result, the entire cuff was oversewn with a running locking stitch of 0 Vicryl after which time there was no ongoing bleeding. Her postoperative course was essentially unremarkable though she did have one soaked pad in the afternoon. As of this morning, she has no significant ongoing active bleeding. Hemoglobin has now stabilized at 10.4. She has no ongoing complaints aside from some mild chest discomfort which is likely attributable to intubation and transfusion of 5 units of packed red blood cells. Lungs are clear and abdomen is soft. The Maria catheter was removed this morning and she has not been up to the bathroom yet. She is tolerating a regular diet. She has been deemed stable for discharge assuming no significant ongoing bleeding as the morning goes on. She will be discharged home to follow- up with her primary surgeon as previously scheduled or sooner should he choose. Instructions included continued lifting restrictions and to abstain from anything in the vagina for at least 6 weeks postop. She understood all of her instructions and agrees to follow up as noted above. Procedures: #1. Exam under anesthesia #2. Vaginal cuff repair #3. Massive blood transfusion (5 units packed red blood cells) Patient Condition at Discharge: Stable Plan - Discharge Summary Discharge Rx Participant: No New Discharge Prescriptions: No Action traZODone HCL 50 mg PO HS PRN PRN Reason: Insomnia SUMAtriptan succinate [Imitrex] 50 mg PO BID PRN PRN Reason: Migraine Headache Apixaban [Eliquis] 5 mg PO BID Aspirin EC [Ecotrin Low Dose] 81 mg PO DAILY Discharge Medication List traZODone HCL 50 mg PO HS PRN 06/28/18 [History] Aspirin EC [Ecotrin Low Dose] 81 mg PO DAILY 06/01/21 [History] SUMAtriptan succinate [Imitrex] 50 mg PO BID PRN 06/01/21 [History] Apixaban [Eliquis] 5 mg PO BID 11/27/21 [History] Follow up Appointment(s)/Referral(s): Deon Voss MD [Primary Care Provider] - 1-2 days Discharge Disposition: HOME SELF-CARE
[2021-11-28] MEDS ORDERED: ACETAMINOPHEN TAB 325 MG TAB PO PRN (11:11)
== END 2021-11-28 14:45 | disposition home or self-care (01) | DRG 921 ==
LOC: EC 08:42 → 4FBP 09:54
PROVIDERS: ADMIT Obstetrics & Gynecology; ATTEND Obstetrics & Gynecology
PROC: 30283B1 Transfusion of Nonautologous 4-Factor Prothrombin Complex Concentrate into Vein, Percutaneous Approach (ICD-10-PCS; principal; 2021-11-27 09:15)
PROC: 0UQGXZZ Repair Vagina, External Approach (ICD-10-PCS; principal; 2021-11-27 09:15)
DX: N99.820 Postprocedural hemorrhage of a genitourinary system organ or structure following a genitourinary system procedure (principal); T81.19XA Other postprocedural shock, initial encounter; D72.829 Elevated white blood cell count, unspecified; F41.0 Panic disorder [episodic paroxysmal anxiety]; Z79.01 Long term (current) use of anticoagulants; Z79.82 Long term (current) use of aspirin; Z90.710 Acquired absence of both cervix and uterus; Z28.310 Unvaccinated for COVID-19; Z28.21 Immunization not carried out because of patient refusal
CPT/HCPCS: 36415; 80048; 83605; 85025; 85027; 85610; 85730; 86850; 86900; 86901; 86920

== ENCOUNTER 2022-09-21 18:17 | Emergency (ER) | payer OTHER ==
[2022-09-21 18:26] VITALS: TEMP 98.2
[2022-09-21] MEDS ORDERED: SODIUM CHLORIDE 0.9% 1,000 ML IV ONE (18:30)
[2022-09-21 19:23] LABS: Basophils % (A) 0 %; Eosinophils # (A) 0.1 k/uL (0-0.7); Eosinophils % (A) 1 %; HCT 36.8 % (34.0-46.0); HGB 12.5 gm/dL (11.4-16.0); Lymphocytes # (A) 1.1 k/uL (1.0-4.8); Lymphocytes % (A) 8 %; MCH 30.1 pg (25.0-35.0); MCHC 33.9 g/dL (31.0-37.0); MCV 88.7 fL (80.0-100.0); Mean Platelet Volume 7.8; Monocytes # (A) 0.3 k/uL (0-1.0); Monocytes % (A) 2 %; Neutrophils # (A) 12.3 k/uL (1.3-7.7); Neutrophils % (A) 89 %; Platelet Count 213 k/uL (150-450); RBC 4.15 m/uL (3.80-5.40); WBC 13.8 k/uL (3.8-10.6)
[2022-09-21 19:35] LABS: ALT 19 U/L (4-34); AST 28 U/L (14-36); African American GFR (CKD) >90 (>60 ml/min/1.73 sqM); Albumin 3.5 g/dL (3.5-5.0); Alkaline Phosphatase 36 U/L (38-126); Anion Gap 8 mmol/L; Blood Urea Nitrogen 10 mg/dL (7-17); Calcium 7.6 mg/dL (8.4-10.2); Carbon Dioxide 20 mmol/L (22-30); Chloride 104 mmol/L (98-107); Glucose 191 mg/dL (74-99); Non-African American GFR(CKD) >90 (>60 ml/min/1.73 sqM); Potassium 3.4 mmol/L (3.5-5.1); Sodium 132 mmol/L (137-145); Total Bilirubin 0.3 mg/dL (0.2-1.3)
[2022-09-21] MEDS ORDERED: methylPREDNISolone SOD SUCCI 125 MG/2 ML VIAL IV STA (20:06)
[2022-09-21] MEDS ORDERED: FAMOTIDINE 20 MG/2 ML VIAL IV STA (20:06)
[2022-09-21] MEDS ORDERED: ACETAMINOPHEN TAB 325 MG TAB PO STA (20:08)
--- NOTE | 2022-09-21 21:27 | ED ---
Allergic Reaction HPI - General Chief complaint: Allergic Reaction Stated complaint: allergic reaction,Bee sting Time Seen by Provider: 09/21/22 18:29 Source: EMS Mode of arrival: EMS - History of Present Illness Initial Comments: This patient is a 32-year-old woman who presents to have evaluation for ALLERGIC reaction after having bee sting. The patient states that she had diffuse itching and rash. She had feeling of swelling in the throat and her voice was hoarse. She was feeling short of breath. EMS was called and did give epinephrine and the patient states that she is starting see some improvement in the itching and rash. She does continue to feel hoarse at the moment. MD Complaint: allergic reaction, hives -: minutes(s) Exposure: insect bite Symptoms: rash, itching, difficulty breathing, hoarseness Severity: moderate Treatment Prior to Arrival: epinephrine - Related Data Home Medications Medication Instructions Recorded Confirmed traZODone HCL 50 mg PO HS PRN 06/28/18 11/27/21 Aspirin EC [Ecotrin Low Dose] 81 mg PO DAILY 06/01/21 11/27/21 SUMAtriptan succinate [Imitrex] 50 mg PO BID PRN 06/01/21 11/27/21 Apixaban [Eliquis] 5 mg PO BID 11/27/21 11/27/21 Previous Rx's Medication Instructions Recorded EPINEPHrine (Auto Inject) [Epipen] 0.3 mg IM ONCE PRN #2 each 09/21/22 Famotidine [Pepcid] 20 mg PO BID #10 tablet 09/21/22 diphenhydrAMINE [Benadryl] 25 mg PO QID #30 capsule 09/21/22 predniSONE [Deltasone] 60 mg PO DAILY 5 Days #15 tab 09/21/22 Allergies Allergy/AdvReac Type Severity Reaction Status Date / Time bee venom protein (honey bee) Allergy Anaphylaxis Verified 09/21/22 18:26 Review of Systems ROS Statement: Those systems with pertinent positive or pertinent negative responses have been documented in the HPI. ROS Other: All systems not noted in ROS Statement are negative. Constitutional: Denies: fever Eyes: Denies: vision change ENT: Reports: throat pain Respiratory: Reports: dyspnea, wheezes. Denies: cough, stridor Cardiovascular: Denies: chest pain, palpitations, syncope Gastrointestinal: Denies: abdominal pain, vomiting, diarrhea Genitourinary: Denies: dysuria, hematuria Musculoskeletal: Denies: back pain Skin: Reports: as per HPI, rash Neurological: Denies: headache, weakness, numbness Past Medical History Past Medical History: No Reported History History of Any Multi-Drug Resistant Organisms: None Reported Past Surgical History: Appendectomy, Hysterectomy, Orthopedic Surgery Additional Past Surgical History / Comment(s): iliac stents Past Anesthesia/Blood Transfusion Reactions: No Reported Reaction Past Psychological History: Panic Disorder Smoking Status: Vaper Past Alcohol Use History: Occasional Past Drug Use History: None Reported General Exam General appearance: alert, in no apparent distress Head exam: Present: atraumatic, normocephalic Eye exam: Present: normal appearance. Absent: scleral icterus, conjunctival injection ENT exam: Present: normal oropharynx, mucous membranes moist Neck exam: Present: normal inspection, full ROM Respiratory exam: Present: normal lung sounds bilaterally. Absent: respiratory distress, wheezes, rales, rhonchi, stridor, accessory muscle use Cardiovascular Exam: Present: regular rate, normal rhythm, normal heart sounds. Absent: systolic murmur, diastolic murmur, rubs, gallop GI/Abdominal exam: Present: soft. Absent: distended, tenderness, guarding, rebound, rigid, mass Extremities exam: Present: normal inspection, normal capillary refill. Absent: pedal edema, calf tenderness Back exam: Present: normal inspection. Absent: CVA tenderness (R), CVA tenderness (L) Neurological exam: Present: alert Skin exam: Present: warm, dry, intact, urticaria. Absent: rash Course Vital Signs 09/21/22 09/21/22 18:18 22:20 Temperature 98.2 F Pulse Rate 98 92 Respiratory 20 16 Rate Blood Pressure 103/71 114/68 O2 Sat by Pulse 100 99 Oximetry Medical Decision Making - Medical Decision Making Patient is a 32-year-old woman presenting after having bee sting with accompanying ALLERGIC reaction. The patient started on improvement after medication by EMS. She was given additional medications here and observed with continued improvement. Discussed appropriate further care and follow-up as well as return parameters. Was pt. sent in by a medical professional or institution (, PA, GROUP BILLING COORDINATOR, urgent care, hospital, or snf...) When possible be specific @ -[No] Did you speak to anyone other than the patient for history (EMS, parent, family, police, friend...)? What history was obtained from this source @ -[No] Did you review nursing and triage notes (agree or disagree)? Why? @ -[I reviewed and agree with nursing and triage notes] Were old charts reviewed (outside hosp., previous admission, EMS record, old EKG, old radiological studies, urgent care reports/EKG's, snf records)? Report findings @ -[No old charts were reviewed] Differential Diagnosis (chest pain, altered mental status, abdominal pain women, abdominal pain men, vaginal bleeding, weakness, fever, dyspnea, syncope, headache, dizziness, GI bleed, back pain, seizure, CVA, palpatations, mental health, musculoskeletal)? @ -[Differential Dyspnea: Coronary syndrome, arrhythmia, tamponade, asthma, COPD, pulmonary embolism, p neumonia, pneumothorax, pulmonary effusion, anaphylaxis, diabetic ketoacidosis, flailed chest, pulmonary contusion, diaphragmatic rupture, anemia, neuromuscular, this is not meant to be an all-inclusive list. EKG interpreted by me (3pts min.). @ -[As above] X-rays interpreted by me (1pt min.). @ -[None done] CT interpreted by me (1pt min.). @ -[None done] U/S interpreted by me (1pt. min.). @ -[None done] What testing was considered but not performed or refused? (CT, X-rays, U/S, labs)? Why? @ -[None] What meds were considered but not given or refused? Why? @ -[None] Did you discuss the management of the patient with other professionals (chari mendieta i.e. , PA, GROUP BILLING COORDINATOR, lab, RT, psych nurse, social media executive, aids nurse, teacher, chief operations officer, upper caser)? Give summary @ -[No] Was smoking cessation discussed for >3mins.? @ -[No] Was critical care preformed (if so, how long)? @ -[No] Were there social determinants of health that impacted care today? How? (Homelessness, low income, unemployed, alcoholism, drug addiction, transport ation, low edu. Level, literacy, decrease access to med. care, longterm, rehab)? @ -[No] Was there de-escalation of care discussed even if they declined (Discuss DNR or withdrawal of care, Hospice)? DNR status @ -[No] What co-morbidities impacted this encounter? (DM, HTN, Smoking, COPD, CAD, Cancer, CVA, ARF, Chemo, Hep., AIDS, mental health diagnosis, sleep apnea, morbid obesity)? @ -[None] Was patient admitted / discharged? Hospital course, mention meds given and route, prescriptions, significant lab abnormalities, going to OR and other pertinent info. @ -[The patient was given additional medication here and observed with continued improvement. She was feeling better and wanted to go home. We discussed the strict return parameters, as well as appropriate further care and follow-up and also prescription is provided. Undiagnosed new problem with uncertain prognosis? @ -[No] Drug Therapy requiring intensive monitoring for toxicity (Heparin, Nitro, Insulin, Cardizem)? @ -[No] Were any procedures done? @ -[No] Diagnosis/symptom? @ -[Acute anaphylaxis reaction Acute, or Chronic, or Acute on Chronic? @ -[default] Uncomplicated (without systemic symptoms) or Complicated (systemic symptoms)? @ -[default] Side effects of treatment? @ -[No] Exacerbation, Progression, or Severe Exacerbation? @ -[No] Poses a threat to life or bodily function? How? (Chest pain, [place], [place], pneumonia, PE, COPD, DKA, ARF, appy, cholecystitis, CVA, Diverticulitis, Homicidal, Suicidal, threat to staff... and all critical care pts) @ -[Yes untreated anaphylaxis may progress to circulatory collapse/respiratory failure and . - Lab Data Result diagrams: 09/21/22 19:15 09/21/22 19:15 Lab Results 09/21/22 09/21/22 Range/Units 19:15 19:15 WBC 13.8 H (3.8-10.6) k/uL RBC 4.15 (3.80-5.40) m/uL Hgb 12.5 (11.4-16.0) gm/dL Hct 36.8 (34.0-46.0) % MCV 88.7 (80.0-100.0) fL MCH 30.1 (25.0-35.0) pg MCHC 33.9 (31.0-37.0) g/dL RDW 12.0 (11.5-15.5) % Plt Count 213 (150-450) k/uL MPV 7.8 Neutrophils % 89 % Lymphocytes % 8 % Monocytes % 2 % Eosinophils % 1 % Basophils % 0 % Neutrophils # 12.3 H (1.3-7.7) k/uL Lymphocytes # 1.1 (1.0-4.8) k/uL Monocytes # 0.3 (0-1.0) k/uL Eosinophils # 0.1 (0-0.7) k/uL Basophils # 0.0 (0-0.2) k/uL Sodium 132 L (137-145) mmol/L Potassium 3.4 L (3.5-5.1) mmol/L Chloride 104 (98-107) mmol/L Carbon Dioxide 20 L (22-30) mmol/L Anion Gap 8 mmol/L BUN 10 (7-17) mg/dL Creatinine 0.70 (0.52-1.04) mg/dL Est GFR (CKD-EPI)AfAm >90 (>60 ml/min/1.73 sqM) Est GFR (CKD-EPI)NonAf >90 (>60 ml/min/1.73 sqM) Glucose 191 H (74-99) mg/dL Calcium 7.6 L (8.4-10.2) mg/dL Total Bilirubin 0.3 (0.2-1.3) mg/dL AST 28 (14-36) U/L ALT 19 (4-34) U/L Alkaline Phosphatase 36 L (38-126) U/L Total Protein 6.0 L (6.3-8.2) g/dL Albumin 3.5 (3.5-5.0) g/dL Disposition Clinical Impression: Allergic reaction to insect sting, Anaphylaxis Disposition: HOME SELF-CARE Condition: Good Instructions (If sedation given, give patient instructions): Anaphylaxis (ED) Additional Instructions: take medications as directed, speak with primary care provider about further testing regarding allergic reactions Prescriptions: diphenhydrAMINE [Benadryl] 25 mg PO QID #30 capsule predniSONE [Deltasone] 60 mg PO DAILY 5 Days #15 tab EPINEPHrine (Auto Inject) [Epipen] 0.3 mg IM ONCE PRN #2 each PRN Reason: Anaphylaxis Famotidine [Pepcid] 20 mg PO BID #10 tablet Is patient prescribed a controlled substance at d/c from ED?: No Referrals: Deon Voss MD [Primary Care Provider] - 1-2 days
[2022-09-21 22:49] VITALS: BP 114/68; PULSE 92; RESP 16
== END 2022-09-21 22:20 | disposition home or self-care (01) ==
LOC: EC 18:17
DX: T63.441A Toxic effect of venom of bees, accidental (unintentional), initial encounter (principal); F17.290 Nicotine dependence, other tobacco product, uncomplicated; Z91.030 Bee allergy status
CPT/HCPCS: 36415; 80053; 85025; 99283; 96374; 96375; 96361; J2930